=== PATIENT | male | born 2000 | race Caucasian/White ===

== ENCOUNTER → 2023-06-22 | Outpatient (CLI) | payer BC ==
--- NOTE | 2023-06-22 09:48 | CT ---
EXAMINATION TYPE: CT abdomen pelvis w con DATE OF EXAM: 06/22/2023 COMPARISON: NONE HISTORY: 23-year-old male R10.32, LLQ pain x2 days TECHNIQUE: Contiguous axial scanning of the abdomen and pelvis following administration of 100 ml Iso meera 300 IV contrast. Delayed images through the kidneys and coronal/sagittal reconstructions perform ed. CT DLP: 1389 mGycm Automated exposure control for dose reduction was used. FINDINGS: LUNG BASES: No significant abnormality is appreciated. LIVER/GB: Liver borderline enlarged at 17.2 cm. Portal venous system is patent. No biliary ductal dil atation. No abnormal gallbladder distention. PANCREAS: No significant abnormality is seen. SPLEEN: Mildly enlarged measuring 15.8 cm measured on coronal series. ADRENALS: No significant abnormality is seen. KIDNEYS: No significant abnormality is seen. LYMPH NODES: No significant abnormality is seen. BOWEL: Appendix not clearly seen. Either very small or surgically absent. Clinically correlate. No si gnificant stool burden. Oral contrast is present throughout the colon extending distally to the rectu m. There is mild circumferential wall thickening along the mid sigmoid colon with slight loss of normal haustral appearance involving a short segment, axial image 71. No significant pericolonic fat strandi ng. No dilated small bowel, free fluid, or free air. PELVIS: No significant abnormality is seen. OTHER: No significant abnormality is seen. BONES: No significant abnormality is seen. IMPRESSION: 1. MILD CIRCUMFERENTIAL WALL THICKENING MID SIGMOID COLON suggesting a nonspecific colitis. Infectiou s and inflammatory causes including IBD are in the differential. If symptoms persist, consider direct visualization. 2. Borderline hepatomegaly at 17.2 cm. Mild splenomegaly at 15.8 cm.
== END | disposition home or self-care (01) ==
LOC: RADCTMAIN 07:01
PROVIDERS: ATTEND Family Medicine
DX: K63.89 Other specified diseases of intestine (principal); R16.2 Hepatomegaly with splenomegaly, not elsewhere classified
CPT/HCPCS: 74177; Q9967